=== PATIENT | female | born 1965 | race Caucasian/White ===

== ENCOUNTER 2024-06-29 09:15 | Outpatient (CLI) | payer OTHER, SELFPAY ==
--- NOTE | ~2024-06-29 | MR_ITS ---
MRI of the lumbar spine Clinical History: Back pain Technique: Axial T2-weighted images, and sagittal T1-weighted, T2-weighted, and T2 fat-sat images wer e acquired. Findings: No acute fracture seen. There is 5 mm anterolisthesis of L4 over L5. There is minimal grade 1 retrolisthesis of L2 over L3. No suspicious bone marrow signal abnormality seen. There are mild re active Modic type I signal changes about the L2-L3 disc space due to underlying degenerative disc dis ease. At L1-L2, there is moderate degenerative disc narrowing. There is minimal disc bulge with moderate fa cet arthropathy. No central canal stenosis. There is mild bilateral neural foraminal narrowing. At L2-L3, there is severe degenerative disc narrowing. There is minimal disc bulge with moderate to s evere facet arthropathy. No roe central canal stenosis. There is advanced bilateral neural foramina l contrast. At L3-L4, there is severe degenerative disc narrowing. There is minimal disc bulge with severe facet arthropathy. No central canal stenosis. There is severe right neural foraminal narrowing. Left neural foramen preserved. At L4-L5, there is degenerative disc narrowing with disc bulge/uncovering and severe facet arthropath y. There is moderate central canal stenosis/thecal sac compression. There is moderate to severe right neural foraminal narrowing. Left neural foramen is minimally narrowed. At L5-S1, there is disc bulge and mild facet arthropathy. No central canal stenosis. There is severe left neural foraminal narrowing, and moderate right neural foraminal narrowing. Paravertebral soft tissues are unremarkable. Impression: Severe degenerative spondylosis, as detailed above. There is moderate canal stenosis at L4-L5, with m ultilevel bilateral neural foraminal narrowing. 5 mm anterolisthesis of L4 over L5. Minimal grade 1 retrolisthesis of L2 over L3. Reviewed, dictated and finalized at location M. Impression: Severe degenerative spondylosis, as detailed above. There is moderate canal xander nosis at L4-L5, with multilevel bilateral neural foraminal narrowing. 5 mm anterolisthesis of L4 over L5. Minimal grade 1 retrolisthesis of L2 over L3.
--- OUTSIDE RECORDS SUMMARY | 2024-06-29 09:21 | XMS_ITS | Data Portability ---
Author Organization [facility], [address] [facility] ([place]) Address [address] [place] [address] Care Team Providers Care Data Support Specialist Name Role Phone CLARENCE NUNEZ Primary Care Provider CLARENCE NUNEZ Referring Provider GOODMAN ABDIRAHMAN Singing Teacher Assessment Encounter Date Assessment Date Assessment LastModified by Organization Details LastModified Time 10/03/2023 10/03/2023 1. Healthy lifestyle was encouraged, including low glycemic/low processed food diet and regular exercise. We will get fasting blood work to be done at their convenience notify of results when available. Medications can be refilled as needed. 2. Anxiety is stable without medications. No medication changes at this time. Patient denies suicidal and/or homicidal ideation. Reviewed possible side effects of and expected benefits of medication. Should any changes arise, or dosing changes be requested, they are to contact us at that time. 3. Hypothyroidism is stable on current medication regimen of levothyroxine. No medication changes at this time. TSH will continue to be monitored periodically. Should symptoms of hyperthyroidism or hypothyroidism occur, then we will check a blood test sooner than planned and adjust medications accordingly. 4. Patient s hyperlipidemia is stable without medications. No medication changes at this time. Request that they report changes in symptoms such as myalgias or arthralgias. Continue to follow a low-fat diet, avoid processed and fast foods. Discussed continued active lifestyle at least 20 minutes per day exercise/activity. 5. For her back pain and somewhat of her shoulder pain, we did discuss options with her and we are going to actually increase her tramadol to three times daily to see if this will help get her through at least until the next ablation or until she decides that she wants to undergo shoulder surgery. 6. We did discuss the cyst on her pancreas again. The patient would like to hold off on recommended CT still at this time. 7. The patient will follow up in six months or sooner as needed. MARIE PMH -migraines/ chronic headaches -IBS -anxiety -lumbar back pain s/p injections and PT (degenerative disc disease) -hypothyroid -neuropathy -cyst of pancreas [email or web address] Not available 10/03/2023 22:11:26 10/29/2023 10/29/2023 The patient's right wrist intersection syndrome is resolved after the corticosteroid injection. She is still having some ongoing symptoms in her right shoulder related to her partial-thickness rotator cuff tear and medial subluxation of the long head of the biceps. For now, she can use her right arm and shoulder as tolerated without restrictions or limitations. She will be reevaluated in 3 months. judith [email or web address] Not available 10/31/2023 07:14:44 01/28/2024 01/28/2024 ASSESSMENT AND PLAN: The patient's right shoulder and right wrist are currently asymptomatic related to the partial thickness rotator cuff tear and medial subluxation of the long head of the biceps and intersection syndrome. She can work without restrictions or limitations. She is released from care and is at maximum medical improvement. She will be seen back on an as needed basis only. romana [email or web address] Not available 01/29/2024 09:29:32 04/01/2024 04/01/2024 1. Healthy lifestyle was encouraged, including low glycemic/low processed food diet and regular exercise. We will get fasting blood work to be done at their convenience notify of results when available. Medications can be refilled as needed. 2. Anxiety is stable without medications. No medication changes at this time. Patient denies suicidal and/or homicidal ideation. Reviewed possible side effects of and expected benefits of medication. Should any changes arise, or dosing changes be requested, they are to contact us at that time. 3. Hypothyroidism is stable on current medication regimen of levothyroxine. No medication changes at this time. TSH will continue to be monitored periodically. Should symptoms of hyperthyroidism or hypothyroidism occur, then we will check a blood test sooner than planned and adjust medications accordingly. 4. Patient s hyperlipidemia is stable without medications. No medication changes at this time. Request that they report changes in symptoms such as myalgias or arthralgias. Continue to follow a low-fat diet, avoid processed and fast foods. Discussed continued active lifestyle at least 20 minutes per day exercise/activity. 5. Continues on tramadol and gabapentin for her back pain. Was following with pain management. A specialist at [facility] was recommended. she may see him in April. 6. We did discuss the cyst on her pancreas again. The patient would like to hold off on recommended CT still at this time. 7. The patient will follow up in six months or sooner as needed and will need labs at that time. PMH -migraines/ chronic headaches -IBS -anxiety -lumbar back pain s/p injections and PT (degenerative disc disease) -hypothyroid -neuropathy -cyst of pancreas [email or web address] Not available 04/01/2024 15:23:14 Plan of Treatment Reminders Order Date Submit Date Provider Last Modified By Organization Details Last Modified Time Details Appointments None recorded. Lab lipid panel, serum 2023 024 [facility], [address] [place] [address], [address], 4 15:06:13 TSH, serum or plasma 2023 024 [facility], [address] [place] [address], [address], 4 15:04:52 Referral None recorded. Procedures None recorded. Surgeries None recorded. Imaging None recorded. Medication Orders gabapentin 300 mg capsule 2024 025 [facility] [address] [place], [address], 5 15:21:37 tramadol 50 mg tablet 2024 025 [facility] [address] [place], [address], 5 15:21:39 levothyroxi ne 75 mcg tablet 2024 025 [facility], [place], [address], 5 15:21:31 amitriptyli ne 10 mg tablet 2024 025 [facility], [place], [address], 5 15:21:31 potassium chloride ER 10 mEq tablet,exte nded release 2024 025 [facility], [place], [address], 5 15:21:31 prednisone 20 mg tablet [id number], [address] [place] [address], [address], 5 14:58:40 gabapentin 100 mg capsule [address] [facility] [address] [place], [address], 5 14:58:02 amitriptyli ne 10 mg tablet 2023 024 [email or web address] 3 [facility], [place], [address], 4 09:42:09 levothyroxi ne 75 mcg tablet 2023 024 [email or web address] 3 [facility], [place], [address], 4 09:42:09 potassium chloride ER 10 mEq tablet,exte nded release 2023 024 [email or web address] 3 [facility], [facility], [place], [address], 09:42:09 Patient TargetsNo targets recorded. Patient InstructionsNo instructions recorded. Reason for Referral None Reported. Results Created Date Observation Date Name Description Value Unit Range Abnormal Flag Note LastModifiedBy Organization Detail LastModifiedTime 10/03/19 24 10/04/2023 TSH, serum or plasm a TSH; reflex to free T4 Not Available [facility] [address] [place] [address], [address], 10/04/2023 15:04:52 10/03/19 24 10/04/2023 TSH, serum or plasm a TSH3 3.342 uIU/m L .340-5 .600 Not Available [facility] [address] [place] [address], [address], 10/04/2023 15:04:52 10/03/19 24 10/04/2023 lipid panel , serum lipid profile Not Available [facility] [address] [place] [address], [address], 10/04/2023 15:06:13 10/03/19 24 10/04/2023 lipid panel , serum cholesterol 212 mg/dL <25-20 0 high Not Available [facility] [address] [place] [address], [address], 10/04/2023 15:06:13 10/03/19 24 10/04/2023 lipid panel , serum triglyceride 126 mg/dL 15-200 Not Available [facility] [address] [place] [address], [address], 10/04/2023 15:06:13 10/03/19 24 10/04/2023 lipid panel , serum HDL 58 mg/dL >40 Not Available [facility] [address] [place] [address], [address], 10/04/2023 15:06:13 10/03/19 24 10/04/2023 lipid panel , serum LDL, calculated 129 mg/dL 5-100 high Not Available [facility] [address] [place] [address], [address], 10/04/2023 15:06:13 10/03/19 24 10/04/2023 lipid panel , serum VLDL 25 mg/dL 1-40 Not Available [facility] [address] [place] [address], [address], 10/04/2023 15:06:13 10/03/19 24 10/04/2023 lipid panel , serum chol/HDL 3.7 ratio 0.0-4. 4 Not Available [facility] [address], [address], 10/04/2023 15:06:13 12/11/19 24 04/16/2023 imagi ng/di agnos tic resul t No observ ation record ed. [email or web address] Not Available 13:51:23 12/11/19 24 05/21/2023 imagi ng/di agnos tic resul t No observ ation record ed. [email or web address] Not Available 13:51:27 12/11/19 24 06/27/2023 imagi ng/di agnos tic resul t No observ ation record ed. [email or web address] Not Available 13:51:51 12/11/19 24 07/13/2023 imagi ng/di agnos tic resul t No observ ation record ed. [email or web address] Not Available 13:51:53 06/14/1906/02/2024 XR, foot, 3 or more view No observ ation record ed. [email or web address] [facility], [place], [address], 06/16/2024 14:11:18 Result Notes None recorded. Problems Name Problem SNOMED Code Status Onset Date Resolution Date Notes Provider Name and Address Organization Details Recorded Time Hypothyro idi 59230249 Active 2023 Clarence Nunez MD [address] [facility], [place], [address] , [facility] 4 17:04:21 Migraine 21064657 Active 2023 Clarence Nunez MD [address] [facility], [place], [address] , [facility] 4 17:04:30 Irritable bowel syndrome 51154125 Active 2023 Clarence Nunez MD [address] [facility], [place], [address] , [facility] 4 17:04:44 Anxiety disorder 774945655 Active 2023 Clarence Nunez MD [address] [facility], [place], [address] , [facility] 4 17:04:50 Low back pain 282770415 Active 2023 sees pain managemen t Clarence Nunez MD [address] [facility], [place], [address] , [facility] 4 17:05:05 Degenerat ion of lumbar intervert ebral disc 88343458 Active 2023 sees pain managemen t Clarence Nunez MD [address] [facility], [place], [address] , [facility] 5 15:03:21 Neuropath y 084286076 Active 2023 Clarence Nunez MD [address] [place] [address], [address] , [facility] 4 17:05:32 Cyst of pancreas 49176484 Active 2023 declines further imaging or testing Clarence Nunez MD [address] [facility], [place], [address] , [facility] 4 17:05:47 Hyperlipi demia 77220704 Active 2023 Clarence Nunez MD [address] , [place], [address] , [facility] 4 17:16:55 Anxiety 32894578 Active 2023 Ford Geovany null, [facility] 4 13:06:35 Hypokalem ia 25573382 Active 2023 Ford Armenta null, [facility] 4 13:06:35 Plantar fasciitis of right foot 66991373233 333762 Active 2023 Genetracithuan Parks null, [facility] 4 15:17:52 Intersect ion syndrome 582799828 Active 2023 Erendira Lazo [facility] 4 22:03:10 Nontrauma tic partial rupture of right rotator cuff 39507473024 49179 Active 2023 [facility] 4 15:50:54 Tendiniti s of long head of biceps brachii of right shoulder 161031703 Active 2023 Erendira Lazo [facility] 4 22:05:16 Synovitis and tenosynov itis 424064208 Active 2023 Erendira Lazo [facility] 4 15:51:37 Biceps tendiniti s 232917442 Active 2023 Erendira Lazo [facility] 4 15:51:44 Lumbar radiculop athy 510840382 Active 2023 Kelvin Seay APRN, MICROWAVE TECHNICIAN [address] , [facility] [place], [address] , [facility] 4 10:40:05 Lumbar facet joint pain 477656125 Active 2023 Kelvin Seay APRN, MICROWAVE TECHNICIAN [address] , [facility] [place], [address] , [facility] 4 10:40:10 Lumbosacr al spondylos is 501126294 Active 2023 [facility] 4 10:12:49 Rupture of rotator cuff of right shoulder 02738491145 417001 Active 2023 Janak Kennedy MD [address] [place] [address], [address] , [facility] 4 10:29:14 Traumatic rupture of rotator cuff 266143861 Active 2023 Janak Kennedy MD [address] [place] [address], [address] , [facility] 4 10:30:55 Problem Notes None recorded. Procedures Surgical History Date Name Laterality Status Provider Name and Address Organization Details Recorded Time 08/08/19 24 SC Procedure completed Marleny briceño [facility] 08/09/2023 08:37:43 12/02/19 23 Date of Last Pap Smear completed Not Available Health Note 03/26/2024 14:09:31 11/27/19 23 Date of Last Mammogram completed Not Available Health Note 03/26/2024 14:09:30 Colonoscopy with biopsy completed Not Available Health Note 06/16/2023 13:27:15 Imaging Results Imaging Date Name Status LastModified by Organiz ation Details LastModified Time 04/16/2023 imaging/diag nostic result completed Information not available 12/11/2023 13:51:23 05/21/2023 imaging/diag nostic result completed Information not available 12/11/2023 13:51:27 06/27/2023 imaging/diag nostic result completed Information not available 12/11/2023 13:51:51 07/13/2023 imaging/diag nostic result completed Information not available 12/11/2023 13:51:53 06/02/2024 XR, foot, 3 or more view completed [email or web address] [facility] [address] [place], [address], 06/16/2024 14:11:18 Procedure Notes None recorded. Medical Equipment None Reported. Allergies Allergen ID Allergen Name Allergen Category Reaction Reaction Severity Criticality Documentation Date Start Date Code Code System Note Provider Name and Address Organization Details Recorded Time 1012229 naproxen medicatio n swelling Not available Not available 08/08/2023 7258 RxNorm [place] [facility] 14:13:42 Medications Name Sig Start Date Stop Date Status Note LastModified by Organization Details LastModified Time methocarbam ol 500 mg tablet TAKE 1 TABLET BY MOUTH THREE TIMES DAILY NEEDED 04/01 completed Not Available Not Available Not Available gabapentin 600 mg tablet TAKE 1 TABLET BY MOUTH THREE TIMES DAILY 04/01 completed Not Available Not Available Not Available fluconazole 200 mg tablet TAKE ONE TABLET ONCE PER WEEK FOR 12 WEEKS. 08/21 completed Not Available Not Available Not Available prednisone 20 mg tablet TAKE 2 TABLETS BY MOUTH EVERY DAY FOR 5 DAYS THEN TAKE 1 TABLET BY MOUTH EVERY DAY FOR 5 DAYS 04/01 completed Not Available Not Available Not Available potassium chloride ER 10 mEq tablet,exte nded release take one tablet by mouth daily 2024 active Not Available Not Available Not Avai lable tramadol 50 mg tablet TAKE 1 TABLET BY MOUTH THREE TIMES DAILY NEEDED FOR PAIN 2024 active Not Available Not Available Not Avai lable levothyroxi ne 75 mcg tablet take one tablet by mouth daily 2024 active Not Available Not Available Not Avai lable amitriptyli ne 10 mg tablet TAKE 2 TABLETS EVERY NIGHT AT BEDTIME active Not Available Not Available No t Available gabapentin 300 mg capsule Take 1 capsule 3 times a day by oral route for 90 days. 2024 active Not Available Not Available Not Avai lable diclofenac sodium 75 mg tablet,audie yed release TAKE 1 TABLET BY MOUTH TWICE A DAY WITH MEALS 08/21 completed Not Available Not Available Not Available gabapentin 100 mg capsule TAKE 1 CAPSULES BY MOUTH THREE TIMES DAILY 04/01 completed Not Available Not Available Not Available methylpredn isolone 4 mg tablets in a dose pack TAKE BY MOUTH DIRECTED ON INSIDE OF PACKAGE 08/21 completed Not Available Not Available Not Available doxycycline hyclate 100 mg tablet TAKE 1 TABLET BY MOUTH TWICE A DAY 08/21 completed Not Available Not Available Not Available amoxicillin 875 mg-maryanne casillas clavulanate 125 mg tablet TAKE 1 TABLET EVERY 12 HOURS DAILY 08/21 completed Not Available Not Available Not Available cyclobenzap rine 5 mg tablet TAKE 1 OR 2 TABLETS AT BEDTIME NEEDED. 08/28 completed Not Available Not Available Not Available pregabalin 75 mg capsule TAKE 1 CAPSULE BY MOUTH THREE TIMES DAILY 04/01 completed Not Available Not Available Not Available Vitals Date Recorded Body height Body mass index (BMI) Body weight Body temperature Respiratory rate Oxygen saturation Oxygen saturation in Arterial blood by Pulse oximetry Heart rate Systolic blood pressure Diastolic blood pressure Provider Name and Address Organization Details Last Updated DateTime 4 170.18 cm 22.4 kg/m2 13357.7 1 g 96.2 [degF] 18 /min 99 % 99 % 70 /min 140 mm[Hg] 74 mm[Hg] July Kim [facility] 4 16:56:34 Date Recorded Body height Body mass index (BMI) Body weight Respiratory rate Body temperature Heart rate Oxygen saturation Oxygen saturation in Arterial blood by Pulse oximetry Systolic blood pressure Diastolic blood pressure Provider Name and Address Organization Details Last Updated DateTime 4 170.18 cm 22.1 kg/m2 68274.5 2 g 20 /min 97.9 [degF] 77 /min 98 % 98 % 132 mm[Hg] 70 mm[Hg] Sabrina dean [facility] 4 15:39:06 Date Recorded Body height Body mass index (BMI) Body weight Body temperature Respiratory rate Heart rate Oxygen saturation Oxygen saturation in Arterial blood by Pulse oximetry Systolic blood pressure Diastolic blood pressure Provider Name and Address Organization Details Last Updated DateTime 5 170.18 cm 22.6 kg/m2 24142.4 g 96.8 [degF] 18 /min 75 /min 99 % 99 % 136 mm[Hg] 74 mm[Hg] Amie Bhat [facility] 5 15:00:45 Social History Question Answer Notes LastModified by Organizat ion Details LastModified Time Tobacco Smoking Status Never Smoker Sabrina [facility] 10/30/2023 15:39:29 Do You Have An Advance Directive? No [email or web address] Information not available 08/29/2023 What Is Your Level Of Caffeine Consumption? Moderate [email or web address] Information not available 08/29/2023 How Many Times Per Week Do You Exercise? 3-4 Times Per Week [email or web address] Information not available 08/29/2023 Do You Have A Medical Power Of Emergency Medical Services Coordinator? No [email or web address] Information not available 08/29/2023 What Was The Date Of Your Most Recent Tobacco Screening? 09/05/2023 [email or web address] Information not available 08/29/2023 What Is Your Relationship Status? [email or web address] Information not available 08/29/2023 Sex: Unknown Functional Status Question Answer Note LastModified by Organizat ion Details LastModified Time Do you use any illicit or recreational drugs? No [email or web address] Information not available 08/29/2023 What is your level of alcohol consumption? None [email or web address] Information not available 08/29/2023 Are you currently employed? 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 Moderate [email or web address] Information not available 08/29/2023 Mental Status None recorded. Family History Relationship Description Onset Age of this Age Resolved Age Notes LastModified by Organization Details LastModified Time Mother Heart disease [email or web address] Not available 2023 13:27:14 Mother Osteoporosis [email or web address] Not availa ble 06/16/2023 13:27:14 Father Heart disease [email or web address] Not available 2023 13:27:14 Father Hypertensive disorder [email or web address] Not available 2023 13:27:14 Father Hypercholest erolemia [email or web address] Not available 2023 13:27:14 Medical History Condition Response Diabetes N Anxiety Disorder N Bleeding Disorder N Attention-deficit Hyperactivity Disorder N High Blood Pressure N Arthritis N Hyperlipidemia N Cancer N Thyroid Problems Y Stroke N Asthma N COPD N Depression N Anemia N Seizures N Heart Disease N Fibromyalgia N Osteoporosis N Kidney Disease N Gynecological History Statement/Question Response Abnormal Pap N If Post Menopausal, Age at Menopause 52 Date of Last Pap Smear 12/01/2022 Age at Menarche 12 Date of Last Mammogram 11/26/2022 Obstetrics History GPAL:G 0 P 0 0 0 0 Immunizations Vaccine Type Date Status Note Provider Nam e and Address Organization Details Recorded Time COVID-19, mRNA, LNP-S, PF, 100 mcg/0.5mL dose or 50 mcg/0.25mL dose 02/21/2020 completed Kathie Medina [facility] 08/08/2023 10:11:26 COVID-19, mRNA, LNP-S, PF, 100 mcg/0.5mL dose or 50 mcg/0.25mL dose 03/20/2020 completed Kathie Medina [facility] 08/08/2023 10:11:26 Past Encounters Encounter ID Performer Location Encounter Start Date Encounter Closed Date Diagnosis/Indication Diagnosis SNOMED-CT Code Diagnosis ICD10 Code Diagnosis Note [id number] Kelvin Seay APRN, MICROWAVE TECHNICIAN [address] [facility] ([place] [address] [place] [address] 06/18/2023 09:33:54 06/19/2023 10:13:21 Lumbar radiculopathy 025658719 M54.16 Lumbar fac et joint pain 917656086 M54.51 [id number] MD [facility] ([place] [address] [place] [address], [address] [place] [address], [place] [address] 06/25/2023 11:41:31 07/02/2023 15:26:30 [id number] Kelvin Seay APRN, MICROWAVE TECHNICIAN [address] [facility] [address] [place] [address] 07/27/2023 09:13:16 07/27/2023 11:03:32 Lumbar radiculopathy 098202281 M54.16 Lumbar fac et joint pain 534285175 M54.51 [id number] MD [facility]ARD[facility] ([place] [address] [place] [address], [place] [address] 08/08/2023 13:57:47 08/14/2023 07:44:23 [id number] Janak Kennedy MD [address] [facility] ([place]) [address] [place] [address] 08/08/2023 09:52:36 08/08/2023 11:42:00 Traumatic rupture of rotator cuff 749870771 S46.091A S46.111A [id number] Vitor Shin MD [facility] ([place]) [address] [place] [address], [address] [place] [address] 08/22/2023 13:27:52 09/03/2023 16:51:37 [id number] Duyen Plata PA-C [facility]) [place] [address] 08/29/2023 15:32:00 08/29/2023 17:54:25 Tenosynovitis 27635282 M65.9 [id number] Janak Kennedy MD [address] [facility] ([place]) [address] [place] [address] 09/05/2023 11:10:44 09/05/2023 14:27:32 [id number] Kelvin Seay, GREEN HOUSE MANAGER, MICROWAVE TECHNICIAN [address] [facility] [place] [address] [place] [address] 10/02/2023 16:11:26 10/02/2023 17:09:52 Lumbar radiculopathy 564238244 M54.16 Lumbar fac et joint pain 493903145 M54.51 [id number] Clarence Nunez MD [facility] ([place]) [address] [place] [address] 10/03/2023 16:42:50 10/03/2023 17:47:40 Anxiety disorder 678002525 F41.9 Hypothyroidism 09658908 E03.9 Degenerati on of lumbar intervertebral disc 69158692 M51.36 Hyperlipidemia 10102595 E78.5 Cyst of pancreas 1807779 0 K86.2 Anxiety 06641253 F41.9 Lumbar radiculopathy 128 826459 M54.16 Low back pain 792900464 M54.50 Hypokalemia 66845177 E87 .6 [id number] Janak Kennedy MD [facility] ([place]) [address] [place] [address] 10/29/2023 13:46:56 10/29/2023 15:19:39 Intersection syndrome 132523776 M65.831 Additional diagnosis detail: Extensor intersecti on syndrome of right wrist In paid employment 14066 6006 Y99.0 Additional diagnosis detail: 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 Nontraumat ic partial rupture of right rotator cuff 0801583131 509336 M75.111 Additional diagnosis detail: Incomplete rotator cuff tear or rupture of right shoulder, not specified as traumatic Tendinitis of long head of biceps brachii of right shoulder 506057030 M75.21 [id number] Nelson Sevilla APRN, [facility]) [address] [place] [address] 10/30/2023 15:26:14 10/30/2023 16:22:00 Plantar fasciitis of right foot 9100069958 8909078 M72.2 - Discussed plantar fasciitis diagnosis with patient in detail.- Recommende d anti-infla mmatory medication , routine stretching , icing, insoles and supportive shoes.- Patient given prednisone for 10 days and she is going to start a home exercise program.- If not improving in four to six weeks, she will let us know and we can get her into Orthopedic s or Podiatry.j cb [id number] Janak Kennedy MD [facility] ([place]) [address] [place] [address] 01/28/2024 13:43:10 01/28/2024 15:59:37 Nontraumatic partial rupture of right rotator cuff [id number] M75.111 Additional diagnosis detail: Incomplete rotator cuff tear or rupture of right shoulder, not specified as traumatic Synovitis and tenosynovitis [id number] M65.831 Biceps tendinitis [id number] M75.21 In paid employment [id number] Y99.0 Additional diagnosis detail: 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 [id number] Clarence Nunez MD [facility] [address] [facility] [id number]|2024-06-29 09:21:00|2024-06-29 09:21:00|XMS_ITS|JUNG HERNANDEZ|External Medical Summaries|[id number]|" Clinical Summary Created on: June 29, 2024 Janelle Herrera Rubina : 1965 Sex: Female Author Organization [facility] Address [address] [place] [id number] Care Team Providers Care Data Support Specialist Name Role Phone Ashley Beltrán NP Primary Care Provider [phone] Allergies No known active allergies Medications omeprazole 20 MG capsule Take 1 capsule (20 mg total) by mouth daily. 30 capsule 05/30/2021 Active multi vitamin/minerals (THERA-M ENHANCED) tablet Take 1 tablet by mouth daily. Active potassium chloride CR (K-TAB) 10 MEQ Tab CR tabletIndication s:Hypokalemia Take 1 tablet (10 mEq total) by mouth daily. 90 tablet 3 04/10/2022 Active levothyroxine (SYNTHROID) 75 MCG tabletIndication s:Hypothyroidism , unspecified type Take 1 tablet (75 mcg total) by mouth daily. 90 tablet 3 04/11/2022 Active traMADol (ULTRAM) 50 MG tabletIndication s:Chronic Pain Take 1 tablet (50 mg total) by mouth 2 (two) times daily as needed. Indications: Chronic Pain 60 tablet 5 05/19/2022 Active amitriptyline (ELAVIL) 10 MG tabletIndication s:Insomnia, unspecified type Take 2 tablets (20 mg total) by mouth nightly at bedtime. 180 tablet 3 05/31/2022 Active gabapentin (NEURONTIN) 100 MG capsuleIndicatio ns:Nerve pain TAKE 1 CAPSULE BY MOUTH NIGHTLY 90 capsule 1 07/03/2022 Active Active Problems Problem Noted Date Diagnosed Date OCD (obsessive compulsive disorder) 07/26/2021 Overview (07/26/2021): I am not sure if she meets criteria for this but she definitely reports some OCD tendencies, counts frequently. Has found that since starting amitriptyline she will forget to count, lose track of counting. She actually states that she likes this and feels good forgetting to do the counting. A&P: Discussed that if she does have OCD, there may be better treatment options but for now she is doing okay on amitriptyline so we will make any changes Irregular bowel habits 06/28/2021 Overview (07/26/2021): : Saw Dr. White who checked HIDA and RUQ US. Found to have gb sludge and dilated CBD, getting MRCP, not yet scheduled. Has c scope later this week. Last week had an episode of significant diarrhea, at least 3 times a day, watery, also had hematochezia. Did not have any vomiting. Symptoms lasted 4 days and then she is back to normal. Since last time I saw her she had two other flareups other than what I described above, which, of note, she also reports feels different than her typical flareups, normally does not have much diarrhea. Just discomfort, fatigue. She took Maxalt during those 2 episodes and for one of them it did seem to help, symptoms resolved within an hour or so, for the other episode it did not help at all. She also increased her amitriptyline from 10 mg to 15 mg since last visit. Likes how it makes her feel a little lower not sure its been entirely helpful from a GI perspective. A&P: Follow-up per Dr. Henry, we will see what C-scope shows. Continue amitriptyline : Will see Dr. White soon Started Amitriptyline last visit at 1/2 tab nightly; started whole pill 10 days ago, no spells for a few weeks, but her sx do that anyway so not sure if it's the med or the natural course of her issue Does not seem to be helping her sleeping much, still waking up early but may be did feel little bit less anxious Tried maxalt during a spell - felt better after a few hours; did not immediately help but sometimes she will have symptoms for days A&P: We will see what Dr. White has to say after he does endoscopy. Increase amitriptyline to 20 mg nightly. Continue the Maxalt as needed, still curious to see if this is helping. Follow-up in 1 month : First started having issues at least 5 years ago Out of nowhere she will experience lots of belching, feels very weak, very nauseaous, headache, more frequent stool, not necessarily diarrhea, abd discomfort/cramping If she lays still and does nothing she'll be ok until the episode is over Never throws up Sometimes has pain in RUQ, reports having had a work-up for her gallbladder, regular quadrant ultrasound and HIDA scan, results are not available to me but these were done around 2016 Doesn't get flushing or feel sweaty, headache is all over Used to get migraines, not as bad as it used to be, still gets optical issues Does report feeling anxious Will wake up worrying about things, a lot of it helps his Her job, has been doing the same job for 15 years and not sure where the anxiety is coming from. Will also have anxiety prior to family get-togethers for example. Has previously been tried on Paxil, did not take it very long due to side effects DDX: Malabsorption, abdominal migraine, irritable bowel syndrome, biliary colic, carcinoid vs pheo Urine studies pending as above Agreeable for colonoscopy, we will have her talk with Dr. Henry, may want to repeat HIDA ultrasound given her persistent right upper quadrant pain; they can also talk about utility of EGD Agreeable for trial of amitriptyline which can be helpful with abdominal migraines or IBS, and may also help her sleep Discussed adding something on for as needed anxiety, we can address this next visit Also going to give her a prescription for Maxalt to use as needed, when she has one of these flares she should let me know if symptoms are resolved with Maxalt Follow-up in 4 weeks unless needing to see me sooner AC joint pain 06/28/2021 Overview (06/28/2021): Previously has responded to a steroid shot Has been hurting her more here lately Voltaren gel not helping Feeling good today, hurt her a lot last night A&P: Discussed that she will have chronic issues with this problem, would hold off on injections until symptoms worsen or become daily. We may end up having her see Ortho for her back, keep this in mind as we evaluate her joint Healthcare maintenance 03/24/2020 Overview (04/10/2022): Labs- Mar Mammo- declines Colon screening- declines Pap- declines Assessment & Plan (03/24/2020 3:09 PM AGRICULTURE INSPECTOR): Labs Feb Mammo- declines Pap- declines Colonoscopy- declines Anemia 12/17/2017 Overview (04/10/2022): Hx of Takes a multi-vitamin Assessment & Plan (04/10/2022 3:30 PM AGRICULTURE INSPECTOR): CBC today Vitamin D deficiency 12/17/2017 Backache Overview (07/26/2021): Started PT, did 6 sessions, not overall better but not worse, cassandra Still has numbness in thigh and foot, does still have thigh pain A&P: Trial of gabapentin, if neuro symptoms change or exam worsens we will check MRI Has chronic issues with R side low back pain, but acutely worsened in the last 1 to 2 months Radiating to her right thigh Has numbness in thigh with alternating sharp pains When she bends gets instant pins/needles in R foot Previoulsy had same back pain but stayed in the area, never radiated No known event or trauma Has hx of spine dz, had IVAN 1-2x years ago Has already been taking high doses of NSAIDs without improvement A&P: Agreeable for physical therapy. We'll start her on a course of steroids, 20 mg daily for a week. We are upping the amitriptyline for her GI issues, this could potentially help with radicular symptoms, if not getting better may see her in a month and may add on gabapentin. Uses tramadol PRN Tolerating well CSA UTD Assessment & Plan (09/20/2020 2:40 PM CDT): Cont regimen Controlled substance agreement signed Overview (04/10/2022): On tramadol Reviewed with patient. INDIO. Assessment & Plan (04/10/2022 3:31 PM AGRICULTURE INSPECTOR): Signed today Assessment & Plan (03/24/2020 3:08 PM AGRICULTURE INSPECTOR): Uses Tramadol BID PRN. Does not need refill today. CSA needs updated. Hypokalemia Overview (09/20/2020): On replacement. Asymptomatic Level in Feb 3.9 Assessment & Plan (04/10/2022 3:30 PM AGRICULTURE INSPECTOR): Labs today No change Assessment & Plan (02/21/2021 4:08 PM AGRICULTURE INSPECTOR): Labs today Cont regimen Assessment & Plan (09/20/2020 2:41 PM CDT): Lab at next visit Cont regimen Assessment & Plan (03/24/2020 3:07 PM AGRICULTURE INSPECTOR): On replacement. Tolerating well. Denies complaints. Last level in Feb 3.9 Hypothyroidism Overview (09/20/2020): On levothyroxine. Asymptomatic TSH in Feb 4.49 Assessment & Plan (04/10/2022 3:29 PM AGRICULTURE INSPECTOR): Labs today No change Assessment & Plan (02/21/2021 4:08 PM AGRICULTURE INSPECTOR): Labs today Cont regimen Assessment & Plan (09/20/2020 2:39 PM CDT): Cont regimen Labs at next visit Assessment & Plan (03/24/2020 3:07 PM AGRICULTURE INSPECTOR): On levothyroxine. Asymptomatic. Tolerating well. Last TSH in Feb 4.49 Nerve pain Overview (04/10/2022): Burning pain all over her body. Ongoing 2weeks to a month. Worse with touching. Clothing is uncomfortable. Mostly in L leg, bilateral feet, arms, and torso. Thought maybe she was going to have a shingles outbreak. No rash has ever developed. Has a lot of stress in her life right now. Was given gabapentin for her back pain a while back, but never started. Didn't think that she needed it. Assessment & Plan (04/10/2022 3:34 PM AGRICULTURE INSPECTOR): Discussed that symptoms can be exacerbated by stress Will trial gabapentin and see what results we get. Patricia in 1 mo. Resolved Problems Problem Noted Date Diagnosed Date Resolved Date Body aches 09/25/2017 03/29/2018 Fatigue 09/25/2017 03/29/2018 Pain, joint, multiple sites 09/25/2017 03/29/2018 Immunizations Immunization Administration Dates Next Due MODERNA COVID-19 (12+) MRNA, LNP-S, PF, 100 MCG/ 0.5 ML DOSE 03/20/2020,02/21/2020 Family History Medical History Relation Comments Heart Father Hypertension Father Stroke Maternal Grandfather Heart Mother hypokalemia Mother Stroke Paternal Grandfather CHF Paternal Grandmother Kidney Disease Paternal Grandmother Relation Status Comments Father Maternal Grandfather Maternal Grandmother Alive Mother Alive Paternal Grandfather Paternal Grandmother Social History Tobacco Use Types Packs/Day Years Used Date Smoking Tobacco: Never Smokeless Tobacco: Never Tobacco Cessation:Counseling Given: No Alcohol Use Standard Drinks/Week Comments Yes 0 (1 standard drink = 0.6 oz pur e alcohol) AUDIT-C Answer Date Recorded Frequency of Alcohol Consumption Monthly or less 03/29/2018 Average Number of Drinks 1 or 2 019 Frequency of Binge Drinking Never 03/15 PHQ-2 Answer Date Recorded Patient Health Questionnaire-2 Score 0 03/10/2022 Comments No Sex and Gender Information Value Date Recorded Sex Assigned at Not on file Legal Sex Female 7:08 PM AGRICULTURE INSPECTOR Gender Identity Not on file Sexual Orientation Not on file Last Filed Vital Signs Vital Sign Reading Time Taken Comments Blood Pressure 102/70 04/10/2022 2:22 PM AGRICULTURE INSPECTOR Pulse 80 04/10/2022 2:22 PM AGRICULTURE INSPECTOR Temperature 36.6 C (97.8 F) 03/10/2022 2:40 PM AGRICULTURE INSPECTOR Respiratory Rate 20 04/10/2022 2:22 PM AGRICULTURE INSPECTOR Oxygen Saturation 97% 04/10/2022 2:22 PM AGRICULTURE INSPECTOR Inhaled Oxygen Concentration - - Weight 64.1 kg (141 lb 6.4 oz) 04/10/2022 2:22 P M AGRICULTURE INSPECTOR Height 170.2 cm (5' 7 ) 04/10/2022 2:22 PM AGRICULTURE INSPECTOR Body Mass Index 22.15 04/10/2022 2:22 PM AGRICULTURE INSPECTOR Plan of Treatment Health Maintenance Due Date Last Done Comments Cervical Cancer Screening Pa p Smear (Age 30 to 64) Every 3 Years 1965 Annual Physical 1968 Hepatitis C 07/06/1983 DTaP, Tdap and Td Vaccines ( 1 - Tdap) 1984 Hepatitis B Vaccines (1 of 3 - 19+ 3-dose series) 1984 Cervical Cancer Screening Pa p with HPV Testing (Age 30 to 64) Every 5 Years 07/06/1995 Cervical Cancer Screening wi th HPV 07/06/1995 Mammogram Screening 2005 Pneumococcal Vaccine: 50+ Years (1 of 1 - PCV) 07/06/2015 Zoster Vaccines (1 of 2) 07/06/2015 COVID-19 Vaccine (2023-2 5 season) 2023 03/20/2020, 02/21/2020 Colorectal Cancer Screening Colonoscopy (10 Years) 07/30/2031 07/29/2021 Meningococcal B Vaccine Aged Out No l onger eligible based on patient's age to complete this topic Meningococcal Vaccine Aged Out No arben lyn eligible based on patient's age to complete this topic RSV Immunizations Under 20 Months Aged Out No longer eligible b ased on patient's age to complete this topic Procedures Procedure Name Priority Date/Time Associated Diagnosis Comments COLONOSCOPY GENERIC (SCAN ORDER) 07/29/2021 from Last 3 Months or Most Recently Relevant to Health Maintenance Results * COLONOSCOPY GENERIC (07/29/2021) 07/29/2021 Narrative 07/29/2021 Ordered by an unspecified provider. us Documents Scanned SCANNING Final Result from Last 3 Months or Most Recently Relevant to Health Maintenance Insurance [employer] Care Teams Data Support Specialist Relationship Specialty Start Date End Date Ashley Beltrán NP PCP - General Nurse Practitioner Family 03/23/18 "
== END 2024-06-29 09:16 | disposition home or self-care (01) ==
PROVIDERS: PCP Family Medicine; Visit Provider Anesthesiology Pain Medicine
DX: M47.816 Spondylosis without myelopathy or radiculopathy, lumbar region (principal); M43.16 Spondylolisthesis, lumbar region; M48.061 Spinal stenosis, lumbar region without neurogenic claudication; G89.29 Other chronic pain
CPT/HCPCS: 72148